=== PATIENT | male | born 1960 | race Caucasian/White ===

== ENCOUNTER → 2020-06-04 | Outpatient (CLI) | payer OTHER | LOC: LAB 08:42 | PROVIDERS: ATTEND Anesthesiology | DX: Z01.812 Encounter for preprocedural laboratory examination (principal); Z20.822 Contact with and (suspected) exposure to COVID-19 ==

== ENCOUNTER 2021-01-31 17:46 | Emergency (ER) | payer OTHER ==
[~2021-01-31] VITALS: Ht 167.6 cm; Wt 72.6 kg
[2021-01-31 18:13] LABS: ABSOLUTE NEUTROPHILS 3.9 thou/uL (1.4-8.2); BASOPHILS 0.2 % (0.0-2.0); HEMATOCRIT 46.8 % (42.0-52.0); HEMOGLOBIN 16.2 gm/dL (14.0-18.0); LYMPHOCYTES 8.7 % (24.0-44.0); MCH 34.1 pg (26.0-34.0); MCHC 34.7 g/dL (28.0-37.0); MCV 98.5 fL (80.0-100.0); MONOCYTES 10.3 % (1.0-8.0); PLATELET COUNT 145 thou/uL (150-400); POLYS 80.8 % (36.0-66.0); RBC 4.75 mil/uL (4.50-6.00); RDW 12.8 % (10.5-14.5); WBC 4.8 thou/uL (4.0-11.0)
[2021-01-31 18:32] LABS: ALBUMIN 3.6 g/dL (3.4-5.0); CALCIUM 8.6 mg/dL (8.5-10.1); TOTAL BILIRUBIN 0.4 mg/dL (0.2-1.0); TOTAL PROTEIN 7.9 g/dL (6.4-8.2)
[2021-01-31 18:36] LABS: POTASSIUM 4.2 mmol/L (3.5-5.1)
[2021-01-31 20:30] VITALS: BP 134/68
--- NOTE | 2021-02-01 07:09 | EKG ---
[address] [address] ELECTROCARDIOGRAM REPORT Name: DIOMEDES BENAVIDES Room #: [facility]#: [id number] Admission: 01/31/21 Attend Phys: Discharge: 01/31/21 Date of : 56 Report #: [id number] [facility] ED Test Date: 2021-01-31 Test Time: 17:49:36 Pat Name: DIOMEDES BENAVIDES Department: Room: Gender: Poultry Helper: JOSE : 1960 Requested By: Evan Franco Order Number: [id number] MD: Jos Loredo Measurements Intervals [place] Rate: 119 P: 53 [place]: 170 QRS: -1 QRSD: 79 T: 39 QT: 317 QTc: 447 Interpretive Statements Sinus tachycardia No previous ECG available for comparison Electronically Signed On 02-01-2021 7:09:04 CDT by Jos Loredo [email or web address] <ELECTRONICALLY SIGNED> By: Jos Loredo MD, [facility] 02/01/21 [id number] 1749 Jos Loredo MD, FACC /EPI
== END 2021-01-31 20:40 | disposition home or self-care (01) ==
LOC: ER 17:46
PROVIDERS: Emergency Medicine
DX: U07.1 COVID-19 (principal); R07.89 Other chest pain; R06.02 Shortness of breath